=== PATIENT | female | born 2000 ===

== ENCOUNTER 2022-06-07 19:29 | Inpatient (IN) | payer SELFPAY ==
[~2022-06-07 19:29] MED LIST: ACETAMINOPHEN 325 MG TAB PO PRN; BUTORPHANOL 2 MG/1 ML INJ IV PRN; CARBOPROST TROMETHAMINE 250 MCG/1 ML INJ IM PRN; LACTATED RINGERS 1,000 ML IV ONE; LIDOCAINE (2%) 20 MG/1 ML VIAL 20 ML MDV INFILTRATI ONE; LOPERAMIDE 2 MG CAP PO PRN; METHYLERGONOVINE MALEATE 0.2 MG/ML VIAL IM PRN; MINERAL OIL 30 ML ORAL LIQD PO PRN; NalbUPHINE 10 MG/1 ML INJ IV PRN; ONDANSETRON 4 MG/2 ML INJ IV PRN; OXYTOCIN 10 UNIT/1 ML INJ IM PRN; TERBUTALINE 1 MG/1 ML INJ SUB-Q PRN; ePHEDrine SULFATE 50 MG/1 ML INJ IV PRN; fentaNYL 100 MCG/2 ML INJ IV PRN; miSOPROStol 200 MCG TAB PR PRN
[2022-06-07] MEDS ORDERED: LACTATED RINGERS 1,000 ML IV SCH (19:30)
[2022-06-07] MEDS ORDERED: OXYTOCIN DRIP 30 UNITS/500 ML BAG IV SCH (20:00)
[2022-06-07 21:25] LABS: Hematocrit 27.9 % (30.3-42.9); Hemoglobin 9.7 gm/dl (10.1-14.3); Mean Corpuscular HGB Conc 35 % (30-34); Mean Corpuscular Volume 77 fl (79-97); Platelet Count 174 K/mm3 (140-440); Red Blood Count 3.61 M/mm3 (3.65-5.03); Red Cell Distribution Width 16.1 % (13.2-15.2)
--- NOTE | 2022-06-08 | History and Physical Report ---
History of Present Illness Date of examination: 06/07/22 Date of admission: 06/07/2022 Chief complaint: Contractions History of present illness: 22-year-old primagravida at 37-5/7 weeks presented to OB triage reporting regular and painful uterine contractions occurring every 3 minutes. There was no vaginal bleeding. The report is no leaking of fluid. There is good movement. In OB triage, cervix is changed from 3 cm dilated to 5 cm dilated. As such, the patient was admitted to labor and delivery for management of early labor. Past History Past Medical History: no pertinent history Past Surgical History: no surgical history Family/Genetic History: none Social history: no significant social history - Obstetrical History Expected Date of Delivery: 06/23/22 Actual Gestation: 37 Week(s) 6 Day(s) : 1 Para: 0 Hx # Term Pregnancies: 0 Number of Pregnancies: 0 Spontaneous Abortions: 0 Induced : 0 Number of Living Children: 0 Medications and Allergies Allergies Allergy/AdvReac Type Severity Reaction Status Date / Time No Known Allergies Allergy Verified 06/07/22 12:28 Active Meds: Active Medications Acetaminophen (Acetaminophen 325 Mg Tab) 650 mg PO Q4H PRN PRN Reason: Pain, Mild (1-3) Butorphanol Tartrate (Butorphanol 2 Mg/1 Ml Inj) 1 mg IV Q2H PRN PRN Reason: Pain, Moderate(4-6) LABOR PAIN Carboprost Tromethamine (Carboprost Tromethamine 250 Mcg/1 Ml Inj) 250 mcg IM ONCE PRN PRN Reason: Uterine Bleeding Ephedrine Sulfate (Ephedrine Sulfate 50 Mg/1 Ml Inj) 10 mg IV Q2M PRN PRN Reason: Hypotension Fentanyl (Fentanyl 100 Mcg/2 Ml Inj) 100 mcg IV Q2H PRN PRN Reason: Pain,Severe (7-10) LABOR PAIN Oxytocin/Sodium Chloride (Pitocin/Ns 30 Unit/500ml) 30 units in 500 mls @ 2 mls /hr IV TITR ISMAEL; Protocol Lactated Ringer's (Lactated Ringers) 1,000 mls @ 125 mls/hr IV DIRECT ISMAEL Last Admin: 06/07/22 22:05 Dose: 125 mls/hr Loperamide HCl (Loperamide 2 Mg Cap) 2 mg PO ONCE PRN PRN Reason: give with Hemabate Methylergonovine Maleate (Methylergonovine Maleate 0.2 Mg/Ml Vial) 0.2 mg IM ONCE PRN PRN Reason: Uterine Bleeding Mineral Oil (Mineral Oil 30 Ml Oral Liqd) 30 ml PO QHS PRN PRN Reason: Constipation Misoprostol (Misoprostol 200 Mcg Tab) 800 mcg VA ONCE PRN PRN Reason: Uterine Bleeding Nalbuphine HCl (Nalbuphine 10 Mg/1 Ml Inj) 10 mg IV Q2H PRN PRN Reason: Pain, Moderate (4-6) Ondansetron HCl (Ondansetron 4 Mg/2 Ml Inj) 4 mg IV Q8H PRN PRN Reason: Nausea And Vomiting Oxytocin (Oxytocin 10 Unit/1 Ml Inj) 10 unit IM ONCE PRN PRN Reason: Uterine Bleeding Terbutaline Sulfate (Terbutaline 1 Mg/1 Ml Inj) 0.25 mg SUB-Q ONCE PRN PRN Reason: Hyperstimulation/Hypertonicity Review of Systems All systems: negative - Vital Signs Vital signs: Vital Signs Pulse BP Pulse Ox 93 H 110/65 97 06/07/22 12:24 06/07/22 12:24 06/07/22 12:24 Temp Pulse Resp BP Pulse Ox 97.9 F 84 20 120/71 98 06/07/22 19:43 06/07/22 23:55 06/07/22 12:29 06/07/22 22:12 06/07/22 23:55 - Physical Exam Breasts: Positive: normal Cardiovascular: Regular rate Lungs: Positive: Normal air movement Abdomen: Positive: normal appearance Genitourinary (Female): Positive: normal external genitalia, normal perenium Vulva: both: normal, pigmented lesion (There is extensive acanthosis nigracans) Vagina: Positive: normal moisture Uterus: Positive: enlarged Adnexa: both: normal Anus/Rectum: Positive: normal perianal skin (However, there is extensive acanthosis nigracans) Extremities: Positive: normal Deep Tendon Reflex Grade: Normal +2 - Obstetrical FHR: category 1 Uterine Contraction Monitor Mode: External Cervical Dilatation: 5 (Medium) Cervical Effacement Percentage: 80 (Posterior) station: -3 Uterine Contraction Frequency (min): 3 Uterine Contraction Pattern: Regular Uterine Contraction Intensity: Moderate Results Result Diagrams: 06/07/22 20:44 Abnormal lab results 08/31/22 Range/Units 20:44 RBC 3.61 L (3.65-5.03) M/mm3 Hgb 9.7 L (10.1-14.3) gm/dl Hct 27.9 L (30.3-42.9) % MCV 77 L (79-97) fl MCH 27 L (28-32) pg MCHC 35 H (30-34) % RDW 16.1 H (13.2-15.2) % All other labs normal. Ultrasound: pending Assessment and Plan - Patient Problems (1) 37 weeks gestation of Current Visit: Yes Status: Acute Plan to address problem: care is up-to-date. According the record, 1 hour glucose tolerance test is within normal limits. However, there is extensive acanthosis nigracans. As such, I ordered an Accu-Chek and a hemoglobin A1c. She is GBS negative. (2) Active labor at term Current Visit: Yes Status: Acute Plan to address problem: In OB triage, cervix is changed from 3 cm dilated to 5 cm dilated. As such, the patient was admitted to labor and delivery for management of early labor. Artificial rupture membranes when possible. Augment with an agent if needed.
[2022-06-08] MEDS ORDERED: BUTORPHANOL 2 MG/1 ML INJ IV PRN (01:03)
[2022-06-08] MEDS ORDERED: miSOPROStol 25 MCG TAB PO SCH (02:00)
--- NOTE | 2022-06-08 02:48 | Ultrasound Report ---
ULTRASOUND OBSTETRIC Indication: Contractions Findings: There is a single intrauterine . Of note given the lie accurate measurements are difficult BPD = 9.5 cm = 38 weeks, 5 day(s). Head circumference = 32.5 cm = 37 weeks, 0 day(s). Abdominal circumference = 34.4 cm = 30 weeks, 2 day(s). Femur length = 6.6 cm = 34 weeks, 1 day(s). Overall estimated sonographic age = 37 weeks, 0 day(s). heart rate is 141 beats per minute. Estimated weight is 3154 grams position is cephalic. Placenta is fundal/right lateral and grade 3 . Amniotic fluid volume decreased with SERGIO of 6.4. Impression: 1. Single living intrauterine with estimated sonographic age of 37 weeks, 0 day(s). See ab winifred comments about difficulties in measurement. 2. Decreased SERGIO of 6.4 cm Signer Name: Yosi Skinner MD Signed: 06/08/2022 2:44 AM Workstation Name: [email or web address]
[2022-06-08] MEDS ORDERED: NALOXONE 0.4 MG/1 ML INJ IV PRN (03:48)
[2022-06-08] MEDS ORDERED: ePHEDrine SULFATE 50 MG/1 ML INJ IV PRN (03:48)
[2022-06-08] MEDS ORDERED: fentaNYL-BUPIV 2 MCG/ML-0.125% 200 MCG/100 ML BAG EPIDURAL SCH (03:48)
--- NOTE | 2022-06-08 03:50 | Anesthesia Consultation ---
Anesthesia Consult and Med Hx Date of service: 06/08/22 - Airway Anesthetic Teeth Evaluation: Good ROM Head & Neck: Adequate Mental/Hyoid Distance: Adequate Mallampati Class: Class II Intubation Access Assessment: Probably Good - Pulmonary Exam CTA: Yes - Cardiac Exam Cardiac Exam: RRR - Pre-Operative Health Status ASA Pre-Surgery Classification: ASA2 Proposed Anesthetic Plan: Epidural - Pulmonary Hx Smoking: No Hx Asthma: No Hx Respiratory Symptoms: No SOB: No COPD: No Home Oxygen Therapy: No Hx Pneumonia: No Hx Sleep Apnea: No - Cardiovascular System Hx Hypertension: No Hx Coronary Artery Disease: No Hx Heart Attack/AMI: No Hx Angina: No Hx Percutaneous Transluminal Coronary Angioplasty (PTCA): No Hx Cardia Arrhythmia: No Hx Pacemaker: No Hx Internal Defibrillator: No Hx Valvular Heart Disease: No Hx Heart Murmur: No Hx Peripheral Vascular Disease: No - Central Nervous System Hx Neuromuscular Disorder: No Hx Seizures: No CVA: No Hx Back Pain: No Hx Psychiatric Problems: No - Gastrointestinal Hx Ulcer: No Hx Gastroesophageal Reflux Disease: No - Endocrine Hx Renal Disease: No Hx End Stage Renal Disease: No Hx Cirrhosis: No Hx Liver Disease: No Hx Insulin Dependent Diabetes: No Hx Non-Insulin Dependent Diabetes: No Hx Thyroid Disease: No Hx Hypothyroidism: No Hx Hyperthyroidism: No - Hematic Hx Anemia: No Hx Sickle Cell Disease: No - Other Systems Hx Alcohol Use: No Hx Substance Use: No Hx Cancer: No Hx Obesity: Yes
--- NOTE | 2022-06-08 03:50 | Anesthesia Day of Surgery ---
Anesthesia Day of Surgery - Day of Surgery Patient Examined: Yes Patient H&P Reviewed: Yes Patient is NPO: Yes Beta Blockers: No Cardiac Clearance: No Pulmonary Clearance: No Samson's Test: N/A
--- NOTE | 2022-06-08 03:53 | Progress Note ---
Labor Epidural - Labor Epidural Start Time: 03:29 Stop Time: 03:34 Performed by:: RONNY MORRIS Procedure: Epidural Requested for Labor Pain. H&P and PT Chart reviewed and consent obtained. Time out performed and the procedure was explained, all questions answered. Patient was placed in a sitting position with monitors applied. The PTs back was prepped and draped in usual sterile fashion. The Skin was localized with 3 mL of 1% lidocaine at L3-L4. A 17-gauge Touhy epidural needle was advanced to ROSA MARIA with saline at 7 cm and no blood/CSF was noted via epidural needle. Epidural catheter was advanced to 12 cm. There was negative aspiration for blood and CSF in the catheter and negative response to a test dose of 3 ml 1.5% lidocaine w/ Epi and a sterile dressing was applied Patient tolerated the procedure well and there were no immediate complications noted.
[2022-06-08] MEDS ORDERED: LIDOCAINE (2%) 20 MG/1 ML VIAL 20 ML MDV INFILTRATI ONE (08:39)
[2022-06-08] MEDS ORDERED: MAGNESIUM HYDROXIDE (MOM) ORAL LIQD UDC PO PRN (09:12)
[2022-06-08] MEDS ORDERED: LANOLIN/ZINC/DIMETHICONE (LANSINOH) 7 GM TP PRN (09:12)
--- NOTE | 2022-06-08 09:16 | Procedure Note ---
OB Delivery Note - Delivery Date of Delivery: 06/08/22 Surgeon: GABRIELLE LUDWIG Estimated blood loss: 500cc - Vaginal Delivery presentation: vertex Delivery position: OA Delivery induction: none Delivery augmentation: rupture of membranes Delivery monitor: external FHT, external uterine Route of delivery: Delivery placenta: spontaneous Delivery cord: nuchal cord, 3 umbilical vessels Episiotomy: none Delivery laceration: 2nd degree Delivery repair: vicryl Anesthesia: local, epidural - Infant A at 1 minute: 8 at 5 minutes: 9 Gender: Male
[2022-06-08] MEDS ORDERED: WITCH HAZEL/ GLYCERIN PAD TP PRN (10:00)
[2022-06-08] MEDS ORDERED: BENZOCAINE/MENTHOL 20/0.5% TOP SPRAY 56 GM TP PRN (10:00)
[2022-06-08] MEDS ORDERED: ACETAMINOPHEN 325 MG TAB PO PRN (10:00)
[2022-06-08] MEDS ORDERED: HYDROcodone/ACETAMINOPHEN 5-325 MG TAB PO PRN (10:00)
--- NOTE | 2022-06-08 12:00 | Progress Note ---
Subjective - Subjective Date of service: 06/08/22 Objective - Vital Signs Latest vital signs: Vital Signs Temp Pulse Resp BP BP Pulse Ox Pulse Ox 06/08/22 10:30 98.3 F 93 H 18 137/74 98 06/08/22 10:03 57 L 0 L 06/08/22 09:50 80 L 06/08/22 09:38 42 L 83 L 06/08/22 09:34 84 99 06/08/22 09:29 77 99 06/08/22 09:24 75 99 06/08/22 09:19 94 H 99 06/08/22 09:18 82 129/78 06/08/22 09:14 76 99 06/08/22 09:09 78 99 06/08/22 09:04 89 99 06/08/22 08:59 97 H 100 06/08/22 08:54 87 99 06/08/22 08:49 81 99 06/08/22 08:48 80 135/78 06/08/22 08:44 81 99 06/08/22 08:39 81 100 06/08/22 08:34 98 H 100 06/08/22 08:29 101 H 100 06/08/22 08:24 98 H 100 06/08/22 08:19 109 H 99 06/08/22 08:18 108 H 119/73 06/08/22 08:14 109 H 100 06/08/22 08:09 119 H 100 06/08/22 08:04 107 H 100 06/08/22 07:59 134 H 99 06/08/22 07:54 130 H 99 06/08/22 07:50 112 H 129/80 06/08/22 07:49 106 H 128/80 99 06/08/22 07:44 122 H 99 06/08/22 07:39 109 H 99 06/08/22 07:34 125 H 100 06/08/22 07:29 133 H 98 06/08/22 07:24 94 H 100 06/08/22 07:19 102 H 99 06/08/22 07:18 100 H 119/77 06/08/22 07:14 95 H 100 06/08/22 07:09 104 H 99 06/08/22 07:04 88 100 06/08/22 06:59 92 H 99 06/08/22 06:54 101 H 100 06/08/22 06:49 113 H 100 06/08/22 06:44 90 99 06/08/22 06:39 109 H 99 06/08/22 06:34 106 H 100 06/08/22 06:29 91 H 99 06/08/22 06:24 101 H 100 06/08/22 06:23 97.8 F 06/08/22 06:19 82 108/57 98 06/08/22 06:14 75 98 06/08/22 06:09 83 98 06/08/22 06:04 79 99 06/08/22 05:59 80 97 06/08/22 05:54 85 98 06/08/22 05:49 93 H 115/71 98 06/08/22 05:44 79 98 06/08/22 05:39 92 H 98 06/08/22 05:34 88 98 06/08/22 05:29 77 99 06/08/22 05:24 76 98 06/08/22 05:19 72 115/69 99 06/08/22 05:13 79 98 06/08/22 05:09 85 99 06/08/22 05:03 87 97 06/08/22 04:59 71 98 06/08/22 04:54 79 97 06/08/22 04:50 76 112/67 06/08/22 04:49 77 98 06/08/22 04:44 74 98 06/08/22 04:38 64 98 06/08/22 04:33 68 99 06/08/22 04:29 71 99 06/08/22 04:24 72 99 06/08/22 04:19 66 99 06/08/22 04:18 67 118/73 06/08/22 04:13 71 98 06/08/22 04:08 66 99 06/08/22 04:04 72 99 06/08/22 03:59 77 98 06/08/22 03:54 74 99 06/08/22 03:52 98.1 F 06/08/22 03:48 95 H 132/76 06/08/22 03:46 83 148/73 99 06/08/22 03:44 74 137/78 06/08/22 03:42 65 133/87 06/08/22 03:41 87 99 06/08/22 03:40 92 H 129/83 06/08/22 03:38 93 H 130/60 06/08/22 03:36 88 138/68 99 06/08/22 03:34 88 133/67 06/08/22 03:32 108 H 129/78 06/08/22 03:31 74 98 06/08/22 03:30 90 136/84 06/08/22 03:28 109 H 131/86 06/08/22 03:26 87 134/85 100 06/08/22 03:21 68 100 06/08/22 03:16 76 127/76 100 06/08/22 02:06 98.0 F 06/08/22 01:38 73 99 06/08/22 01:33 82 99 06/08/22 01:27 76 100 06/08/22 01:23 77 99 06/08/22 01:18 77 100 06/08/22 01:13 79 99 06/08/22 01:08 80 99 06/08/22 01:02 77 100 06/08/22 00:58 97 H 99 06/08/22 00:52 80 99 06/08/22 00:47 82 100 06/08/22 00:42 78 100 06/08/22 00:37 77 100 06/08/22 00:33 76 99 06/08/22 00:28 79 98 06/08/22 00:23 84 99 06/08/22 00:17 95 H 99 06/08/22 00:15 97.7 F 06/08/22 00:10 83 99 06/08/22 00:05 86 99 06/08/22 00:01 81 99 06/07/22 23:55 84 98 06/07/22 23:50 85 99 06/07/22 23:45 79 99 06/07/22 23:24 79 99 06/07/22 23:19 84 99 06/07/22 23:14 86 98 06/07/22 23:09 98 H 98 06/07/22 23:04 80 99 06/07/22 22:59 87 98 06/07/22 22:54 90 98 06/07/22 22:49 90 98 06/07/22 22:44 89 98 06/07/22 22:39 85 98 06/07/22 22:34 92 H 98 06/07/22 22:29 86 98 06/07/22 22:24 86 98 06/07/22 22:19 94 H 99 06/07/22 22:14 89 99 06/07/22 22:12 81 120/71 06/07/22 22:09 85 98 06/07/22 22:04 90 99 06/07/22 21:51 89 99 06/07/22 21:46 92 H 99 06/07/22 21:41 99 H 98 06/07/22 21:36 95 H 98 06/07/22 21:31 94 H 98 06/07/22 21:26 98 H 98 06/07/22 21:21 91 H 98 06/07/22 21:16 95 H 98 06/07/22 21:11 90 98 06/07/22 21:06 95 H 97 06/07/22 21:01 95 H 98 06/07/22 20:56 89 99 06/07/22 20:51 101 H 98 06/07/22 20:46 97 H 97 06/07/22 20:41 89 99 06/07/22 20:36 98 H 98 06/07/22 20:31 98 H 99 06/07/22 20:26 104 H 98 06/07/22 20:21 106 H 98 06/07/22 20:16 103 H 98 06/07/22 20:11 100 H 98 06/07/22 20:06 97 H 98 06/07/22 20:01 100 H 98 06/07/22 19:56 96 H 98 06/07/22 19:51 103 H 99 06/07/22 19:49 101 H 115/64 06/07/22 19:46 107 H 98 06/07/22 19:43 97.9 F 98 06/07/22 18:09 95 H 98 06/07/22 18:04 101 H 98 06/07/22 17:59 87 97 06/07/22 17:54 95 H 98 06/07/22 17:49 96 H 98 06/07/22 17:44 93 H 98 06/07/22 17:39 101 H 96 06/07/22 17:34 93 H 97 06/07/22 17:29 92 H 97 06/07/22 17:24 97 H 96 06/07/22 17:19 97 H 97 06/07/22 17:14 96 H 97 06/07/22 17:12 98 H 94 06/07/22 17:09 93 H 96 06/07/22 17:04 94 H 96 06/07/22 16:59 105 H 97 06/07/22 16:54 103 H 97 06/07/22 16:49 100 H 97 06/07/22 16:44 94 H 96 06/07/22 16:39 95 H 97 06/07/22 16:34 98 H 97 06/07/22 16:29 92 H 98 06/07/22 16:24 99 H 98 06/07/22 16:23 91 H 105/63 06/07/22 15:05 73 99 06/07/22 15:00 75 99 06/07/22 14:55 78 98 06/07/22 14:53 85 118/67 06/07/22 14:50 85 100 06/07/22 14:45 91 H 99 06/07/22 14:43 82 119/66 06/07/22 14:40 93 H 98 06/07/22 14:37 77 86 06/07/22 14:34 81 99 06/07/22 14:29 81 99 06/07/22 14:24 79 98 06/07/22 14:23 77 108/63 06/07/22 14:19 76 98 06/07/22 14:14 85 98 06/07/22 14:09 78 98 06/07/22 14:08 77 104/56 06/07/22 14:04 82 99 06/07/22 13:59 92 H 98 06/07/22 13:54 84 99/54 97 06/07/22 13:49 81 97 06/07/22 13:44 86 98 06/07/22 13:39 83 97 06/07/22 13:38 77 106/61 06/07/22 13:34 78 97 06/07/22 13:29 81 99 06/07/22 13:24 87 97 06/07/22 13:23 85 102/58 06/07/22 13:19 91 H 97 06/07/22 13:14 85 97 06/07/22 13:09 87 97 06/07/22 13:08 83 110/67 06/07/22 13:04 85 96 06/07/22 12:59 88 97 06/07/22 12:54 89 97 06/07/22 12:53 93 H 117/68 06/07/22 12:49 87 97 06/07/22 12:44 98 H 98 06/07/22 12:39 92 H 97 06/07/22 12:38 96 H 110/69 06/07/22 12:34 88 97 06/07/22 12:29 98.6 F 93 H 20 110/65 98 06/07/22 12:24 86 110/65 97 Intake and Output 06/07/22 06/08/22 06/08/22 23:59 07:59 15:59 Output Total 700 Balance -700 Output: Urine 700 Indwelling Catheter 700 Other: Total, Output Amount 700 Estimated Blood Loss 500 - Labs Labs: Abnormal lab results 06/07/22 Range/Units 20:44 RBC 3.61 L (3.65-5.03) M/mm3 Hgb 9.7 L (10.1-14.3) gm/dl Hct 27.9 L (30.3-42.9) % MCV 77 L (79-97) fl MCH 27 L (28-32) pg MCHC 35 H (30-34) % RDW 16.1 H (13.2-15.2) %
[2022-06-08] MEDS: IBUPROFEN 800 MG TAB PO SCH ×2 (12:43→18:28)
[2022-06-08] MEDS: DOCUSATE SODIUM 100 MG CAP PO SCH (12:44)
[2022-06-09] MEDS: IBUPROFEN 800 MG TAB PO SCH ×3 (00:51→15:19)
[2022-06-09] MEDS: DOCUSATE SODIUM 100 MG CAP PO SCH ×2 (00:51→09:26)
[2022-06-09 06:30] LABS: Hematocrit 25.5 % (30.3-42.9); Hemoglobin 8.2 gm/dl (10.1-14.3); Mean Corpuscular HGB Conc 32 % (30-34); Mean Corpuscular Volume 79 fl (79-97); Platelet Count 159 K/mm3 (140-440); Red Blood Count 3.23 M/mm3 (3.65-5.03); Red Cell Distribution Width 16.1 % (13.2-15.2)
--- NOTE | 2022-06-09 07:23 | Post Anesthesia Evaluation ---
- Post Anesthesia Evaluation Patient Participated: Yes Airway Patent: Yes Stable Respiratory Function: Yes Nausea/Vomiting: No Temp > 96.8F: Yes Pain Manageable: Yes Adequeate Hydration: Yes Anesthesia Complications: No Block Receding Appropriately: Yes Patient on Ventilator: No
--- NOTE | 2022-06-09 08:40 | Progress Note ---
Assessment and Plan A: anemia stable P: continue PP care per unit protocol\ Fe 1tab po Discharge home today Subjective - Subjective Date of service: 06/09/22 Principal diagnosis: Patient reports: appetite normal, voiding normally, pain well controlled, flatus, ambulating normally : doing well, nursing well, bottle feeding Objective - Vital Signs Latest vital signs: Vital Signs Temp Pulse Resp BP BP BP Pulse Ox 06/09/22 07:45 97.4 F L 91 H 18 102/60 90 06/09/22 01:19 97.9 F 90 16 116/72 98 06/08/22 21:20 98.2 F 84 18 114/52 100 06/08/22 20:45 06/08/22 18:28 16 06/08/22 16:37 98.2 F 83 20 122/69 96 06/08/22 13:17 06/08/22 12:43 16 06/08/22 10:30 98.3 F 93 H 18 137/74 98 06/08/22 10:03 57 L 0 L 06/08/22 09:50 80 L 06/08/22 09:38 42 L 83 L 06/08/22 09:34 84 99 06/08/22 09:29 77 99 06/08/22 09:24 75 99 06/08/22 09:19 94 H 99 06/08/22 09:18 82 129/78 06/08/22 09:14 76 99 06/08/22 09:09 78 99 06/08/22 09:04 89 99 06/08/22 08:59 97 H 100 06/08/22 08:54 87 99 06/08/22 08:49 81 99 06/08/22 08:48 80 135/78 06/08/22 08:44 81 99 Pulse Ox 06/09/22 07:45 06/09/22 01:19 06/08/22 21:20 06/08/22 20:45 100 06/08/22 18:28 06/08/22 16:37 06/08/22 13:17 100 06/08/22 12:43 06/08/22 10:30 06/08/22 10:03 06/08/22 09:50 06/08/22 09:38 06/08/22 09:34 06/08/22 09:29 06/08/22 09:24 06/08/22 09:19 06/08/22 09:18 06/08/22 09:14 06/08/22 09:09 06/08/22 09:04 06/08/22 08:59 06/08/22 08:54 06/08/22 08:49 06/08/22 08:48 06/08/22 08:44 Intake and Output 06/08/22 06/09/22 06/09/22 23:59 07:59 15:59 Intake Total 120 360 Output Total 150 Balance 120 210 Intake: Oral 120 Intake, Free Water 360 Output: Urine 150 Void 150 Other: Total, Intake Amount 120 Total, Output Amount 150 # Voids Void 1 1 - Exam Breasts: Present: normal Cardiovascular: Present: Regular rate Lungs: Present: Clear to auscultation, Normal air movement Abdomen: Present: normal appearance, soft Uterus: Present: firm, tenderness, fundal height below umbilicus Extremities: Present: normal Deep Tendon Reflex Grade: Normal +2 - Labs Labs: Abnormal lab results 06/09/22 Range/Units 05:21 WBC 14.0 H (4.5-11.0) K/mm3 RBC 3.23 L (3.65-5.03) M/mm3 Hgb 8.2 L (10.1-14.3) gm/dl Hct 25.5 L (30.3-42.9) % MCH 25 L (28-32) pg RDW 16.1 H (13.2-15.2) %
--- NOTE | 2022-06-09 08:41 | Discharge Summary ---
Providers - Providers Date of Admission: 06/08/22 08:33 Date of discharge: 06/09/22 Attending physician: DOMINICK BIRCH Primary care physician: DOMINICK BIRCH Hospitalization Reason for admission: active labor Delivery: Episiotomy: none Laceration: 2nd degree Other procedures: none complications: none Discharge diagnosis: IUP at term delivered baby: male Condition at discharge: Good Disposition: 01 HOME / SELF CARE / HOMELESS Plan - Discharge Medications Prescriptions: Ibuprofen [Motrin 800 MG tab] 800 mg PO Q8HR #30 tablet - Provider Discharge Summary Activity: no sex for 6 weeks, no heavy lifting 4 weeks, no strenuous exercise Diet: routine Instructions: routine Additional instructions: [] Smoking cessation referral if applicable(refer to patient education folder for contact #) [] Refer to [facility] Booklet Call your doctor immediately for: * Fever > 100.5 * Heavy vaginal bleeding ( >1 pad per hour) * Severe persistent headache * Shortness of breath * Reddened, hot, painful area to leg or breast * Drainage or odor from incision. * - Follow up plan Follow up: DOMINICK BIRCH MD [Primary Care Provider] - 6 Weeks Forms: [facility] Discharge Summary
[2022-06-09 18:34] VITALS: BP 109/64
== END 2022-06-09 16:02 | disposition home or self-care (01) | DRG 807 ==
LOC: TRG 19:29 → APU 19:29 → LD 19:35 → TRG 06-08 08:28 → LD 06-08 08:33 → UNDOADMIN 06-08 08:34 → LD 06-08 08:49 → UNDOADMIN 06-08 08:49 → OB 06-08 10:24
PROVIDERS: ADMIT Obstetrics & Gynecology; ATTEND Obstetrics & Gynecology
PROC: 0KQM0ZZ Repair Perineum Muscle, Open Approach (ICD-10-PCS; principal; 2022-06-08)
PROC: 10E0XZZ Delivery of Products of Conception, External Approach (ICD-10-PCS; 2022-06-08)
PROC: 3E0R3BZ Introduction of Anesthetic Agent into Spinal Canal, Percutaneous Approach (ICD-10-PCS; 2022-06-08)
PROC: 00HU33Z Insertion of Infusion Device into Spinal Canal, Percutaneous Approach (ICD-10-PCS; 2022-06-08)
DX: O69.81X0 Labor and delivery complicated by cord around neck, without compression, not applicable or unspecified (principal); Z37.0 Single live birth; Z20.822 Contact with and (suspected) exposure to COVID-19; O70.1 Second degree perineal laceration during delivery; Z3A.37 37 weeks gestation of pregnancy; O90.81 Anemia of the puerperium
CPT/HCPCS: 36415; 76816; 82962; 83036; 85027; 86592; 86850; 86900; 86901; G0378; J3490; J2590; J7120; U0003